=== PATIENT | male | born 1950 | race Caucasian/White ===

== ENCOUNTER 2020-11-25 13:04 | Emergency (ER) | payer SELFPAY ==
[2020-11-25] MEDS ORDERED: BAMLANIVIMAB 700 MG in SODIUM CHLORIDE 0.9% 250 ML IV STA (15:14)
--- NOTE | 2020-11-25 15:15 | ED Physician Documentation ---
History of Present Illness - Stated complaint Stated Complaint: TIRED - Chief complaint Chief Complaint: General - History obtained from History obtained from: Patient - History of Present Illness Timing: Today Pain level max: 0 Pain level now: 0 - Additonal information Additional information: Patient is a 70-year-old male who presents to the emergency department after being symptomatic from presumed Covid for about 8 days. Tested +6 days ago. Had 1 dose of his Covid vaccination in August. Never received the second dose. He was sent here by his doctor for Bamlanivimab infusion. No fevers. No cough. No chills. Patient does have a history of diabetes and asthma. Review of Systems Ten Systems: 10 systems reviewed and negative Constitutional: denies: Fever, Chills Ears: denies: Ear pain Nose: denies: Rhinorrhea / runny nose, Congestion Respiratory: denies: Cough GI: denies: Abdominal Pain, Nausea, Vomiting, Diarrhea Skin: denies: Rash Musculoskeletal: denies: Neck pain, Back pain Neurologic: denies: Headache PD PAST MEDICAL HISTORY - Past Medical History Past Medical History: No - Past Surgical History Past Surgical History: No - Allergies Allergies/Adverse Reactions: Allergies Allergy/AdvReac Type Severity Reaction Status Date / Time No Known Drug Allergies Allergy Verified 11/25/20 13:25 - Living Situation Living Situation: reports: With family Living Arrangement: reports: At home - Social History Does the pt smoke?: No Smoking Status: Never smoker Does the pt drink ETOH?: No Does the pt have substance abuse?: No - Immunizations Immunizations are current?: No PD ED PE NORMAL - Vitals Vital signs reviewed: Yes - General General: Alert and oriented X 3, No acute distress, Well developed/nourished - HEENT HEENT: Moist mucous membranes - Neck Neck: Supple, no meningeal sign - Cardiac Cardiac: RRR, Strong equal pulses - Respiratory Respiratory: No respiratory distress, Clear bilaterally - Derm Derm: Warm and dry - Extremities Extremities: No edema - Neuro Neuro: Alert and oriented X 3 - Psych Psych: Normal mood, Normal affect Results - Vitals Vitals: Vital Signs - 24 hr 11/25/20 11/25/20 11/25/20 13:25 15:53 17:54 Temperature 36.5 C 37.7 C Heart Rate 87 83 83 Respiratory 16 20 18 Rate Blood Pressure 180/74 H 182/83 H 173/74 H O2 Saturation 96 96 96 Oxygen O2 Source Room air PD MEDICAL DECISION MAKING - ED course Complexity details: re-evaluated patient, considered differential, d/w patient ED course: Infusion completed. No complications. Patient is well-appearing, nontoxic. Afebrile. No hypoxia. We will have the patient follow-up with her doctor for further care. This document was made in part using voice recognition software. While efforts are made to proofread this document, sound alike and grammatical errors may occur. Departure - Departure Disposition: 01 Home, Self Care Clinical Impression: COVID-19 Condition: Good Instructions: COVID-19 [facility] Follow-Up: your,doctor as needed [Other] Comments: You received your bamlanivimab infusion today. Follow-up with your doctor for further care. Discharge Date/Time: 11/25/20 18:35
[2020-11-25 17:54] VITALS: BP 173/74
== END 2020-11-25 18:35 | disposition home or self-care (01) ==
LOC: ED 13:04
DX: U07.1 COVID-19 (principal); E11.9 Type 2 diabetes mellitus without complications; J45.909 Unspecified asthma, uncomplicated
CPT/HCPCS: 99283; 99284; M0239; Q0239